=== PATIENT | male | born 1975 | race Caucasian/White ===

== ENCOUNTER → 2021-03-11 00:35 | Outpatient (REF) | payer SELFPAY | END | disposition home or self-care (01) | LOC: EDREF 00:35 | DX: Z00.00 Encounter for general adult medical examination without abnormal findings (principal) ==

== ENCOUNTER → 2023-08-17 | Outpatient (CLI) | payer OTHER, SELFPAY ==
--- NOTE | 2023-08-17 | COLBX_PTH ---
PATIENT: GLORIA EDWARD II LOC: [facility] U#:[id number] AGE/SX: 48/M ROOM: RE08/17/[address]: Dr. David Valera MD : 1975 BED: DIS: 08/17/2023 SPEC #: [id number] RECD: 08/17/23 15:16 STATUS: JEFFERY ARIAN #: [id number] FAISAL: 08/17/23 00:[address]: David Valera DEPT: SURGICAL PATHOLOGY RECD BY: Kat Soliz Tissues: Rectum, NOS Procedures: Surgery Specimen Level IV HEADER OPERATION: Colonoscopy PRE-OP DIAGNOSIS: Family history of colon cancer TISSUE SUBMITTED: Rectal polyps x2 MICROSCOPIC DIAGNOSIS Rectal polyps, biopsy: Fragments of tubular adenoma. AM/mr 08/19/2023 MICROSCOPIC DESCRIPTION Slides are reviewed. GROSS DESCRIPTION Received in fixative is one container labeled with the patient's name and designated Rectal polyps. The specimen consists of multiple irregular fragments of light mendoza soft tissue that in aggregate measure 1.0 x 0.3 x 0.1 cm. The specimen is totally submitted in one cassette. [place]/ 08/18/2023 TC:5 CPT:40619
== END | disposition home or self-care (01) ==
LOC: LABSPEC 15:33
PROVIDERS: Referring Provider Surgery; Visit Provider Surgery
DX: Z80.0 Family history of malignant neoplasm of digestive organs (principal)
CPT/HCPCS: 88305